=== PATIENT | female | born 1945 | race Asian ===

== ENCOUNTER 2016-08-31 06:51 | Inpatient (IN) | payer OTHER ==
[2016-08-25 11:18] LABS: BASOPHIL % 0.3 % (0-2); PLATELET COUNT 230 x10^3mcL (130-400); RED CELL DISTRIBUTION WIDTH 12.7 % (11.5-14.5)
[2016-08-25 11:26] LABS: CALCIUM 9.6 mg/dL (8.5-10.1); CARBON DIOXIDE 30.6 mmol/L (21-32); CHLORIDE SERUM 103 mmol/L (98-107); CREATININE SERUM 0.7 mg/dL (0.6-1.0); GFR1 > 60 mL/min; GLUCOSE SERUM 103 mg/dL (74-106); POTASSIUM SERUM 4.3 mmol/L (3.5-5.1); SODIUM SERUM 141 mmol/L (136-145)
[~2016-08-31] VITALS: Ht 160 cm; Wt 65.8 kg
[2016-08-31 08:22] VITALS: BP 162/80
[2016-08-31 14:20] VITALS: BP 97/55
--- NOTE | 2016-08-31 14:35 | NUR ---
ARRIVED FROM OR WITH NATA RN AT 1355. VS'S STABLE, EXCEPT TEMP 96.4, 2 WARM BLANKETS APPLIED. LUNGS CTA. NO SOB. O2 SAT ON 2L NC 100%. BS'S ACTIVE TIMES 4. PERSON CATH DRAINING YELLOW URINE TO BSD. DRESSING TO RIGHT HIP CDI. PERIPHERAL PULSES PALPABLE, NO EDEMA. ON AIR MATTRESS. SCD BLE. SLEEPY BUT AROUSABLE WITH TACTILE STIMULUS.
--- NOTE | 2016-08-31 15:43 | NUR ---
P.T. NOTES VERBAL ORDER FOR OHT SET UP; OHT APPLIED, EXPLAINED PROPER USE; CALL TOBIN, PHONE, TABLE IN REACH; NURSE AWARE. OHT SET UP
[2016-08-31 16:45] LABS: ALKALINE PHOSPHATASE 59 U/L (46-116); ALT/SGPT 37 U/L (14-59); AMYLASE 57 U/L (25-115); AST/SGOT 41 U/L (15-37); BILIRUBIN TOTAL 0.42 mg/dL (0.20-1.00); CALCIUM 8.3 mg/dL (8.5-10.1); CARBON DIOXIDE 26.4 mmol/L (21-32); CHLORIDE SERUM 107 mmol/L (98-107); CREATININE SERUM 0.9 mg/dL (0.6-1.0); GFR1 > 60 mL/min; GLUCOSE SERUM 176 mg/dL (74-106); HDL CHOLESTEROL 35 mg/dL (40-60); LIPASE 214 IU/L (73-393); MAGNESIUM 1.9 mg/dL (1.8-2.4); PHOSPHOROUS 4.4 mg/dL (2.5-4.9); POTASSIUM SERUM 3.9 mmol/L (3.5-5.1); SODIUM SERUM 142 mmol/L (136-145); TOTAL PROTEIN, SERUM 6.3 g/dL (6.4-8.2); TRIGLYCERIDES 99 mg/dL (<150)
[2016-08-31 16:46] LABS: ALBUMIN 3.1 g/dL (3.4-5.0); CHOLESTEROL 121 mg/dL (<200); CHOLESTEROL/HDL RATIO 3.5
[2016-08-31 16:52] LABS: FREE T4 1.17 ng/dL (0.76-1.46); FREE THYROXINE INDEX 2.8 ug/dL (1.4-4.5); T4(THYROXINE) 7.8 ug/dL (4.7-13.3)
[2016-08-31 16:54] LABS: T3 TOTAL 0.98 ng/mL
[2016-08-31 18:14] VITALS: BP 90/50
--- NOTE | 2016-08-31 18:53 | NUR ---
AAO TIMES 4. TELE DC'D, NOW MED SURG. IV SITE CDI. DENIES DISCOMFORT TO RIGHT LEG. IV SITE RIGHT HAND CDI. COOPERATIVE AND PLEASANT. NO SOB. ON AIR MATTRESS. DRESSING TO RIGHT HIP CDI. SCD BLE. ABDUCTOR PILLOW BETWEEN KNEES.
[2016-08-31] MEDS ORDERED: LIPITOR20 MG PO (20:38)
[2016-08-31] MEDS ORDERED: ATENOLOL25 MG PO (20:39)
--- NOTE | 2016-08-31 21:33 | NUR ---
DR. NICHOLSON NOTIFIED OF BP BEING 101/50 WITH MAP OF 62. INSTRUCTED TO MONITOR AND NOTIFY HER IF PT BP DECREASES ANY FURTHER.
[2016-08-31 22:05] VITALS: BP 101/52
--- NOTE | 2016-08-31 22:17 | NUR ---
PT REPORTED THAT PAIN AT THE SURGICAL SITE WAS STARTING TO INCREASE, BP 95/55 WITH MAP OF 68. WILL CONTINUE TO CLOSELY MONITOR BP AND MAP.
--- NOTE | 2016-08-31 23:25 | NUR ---
UPON REEVALUATION OF PAIN MEDICATION PT STATED THAT THAT PAIN HAS DECREASED BUT OCCASIONALLY SHE GETS A SHARP PAIN. NO PAIN NOTED AT THIS TIME. WILL CONTINUE TO MONITOR.
[2016-09-01 06:10] VITALS: BP 99/53
--- NOTE | 2016-09-01 06:13 | NUR ---
PT MAINTAINED PLEASANT DEMEANOR THROUGHOUT SHIFT AND REQUESTED PRN PAIN MEDICATION ONE TIME (SEE EMAR). PT STATED THAT WHEN SHE HAD PAIN IT WAS SHARP AND SHORT IN DURATION. PT REMAINED CALM AND COOPERATIVE THROUGHOUT SHIFT.
[2016-09-01 06:29] LABS: BASOPHIL % 0.3 % (0-2); PLATELET COUNT 171 x10^3mcL (130-400); RED CELL DISTRIBUTION WIDTH 12.9 % (11.5-14.5)
[2016-09-01 06:50] LABS: CALCIUM 7.6 mg/dL (8.5-10.1); CARBON DIOXIDE 24.8 mmol/L (21-32); CHLORIDE SERUM 108 mmol/L (98-107); CREATININE SERUM 0.8 mg/dL (0.6-1.0); GFR1 > 60 mL/min; GLUCOSE SERUM 137 mg/dL (74-106); MAGNESIUM 1.7 mg/dL (1.8-2.4); PHOSPHOROUS 3.6 mg/dL (2.5-4.9); POTASSIUM SERUM 4.3 mmol/L (3.5-5.1); SODIUM SERUM 142 mmol/L (136-145)
--- NOTE | 2016-09-01 08:28 | NUR ---
AAO TIMES 4. MED SURG PATIENT. LUNGS CTA. NO SOB. O2 SAT ON RA 98%. BS'S ACTIVE TIMES 4. ABDUCTOR PILLOW BETWEEN LEGS. DRESSING TO RIGHT HIP CDI. ON AIR MATTRESS. PERSON CATH DRAINING YELLOW URINE TO BSD. PERIPHERAL PULSES PALPABLE. NO EDEMA. SCD BLE.
--- NOTE | 2016-09-01 08:50 | NUR ---
MEDICAL ROUNDS OCCURED AT [address] LÓPEZ AND THE MEDICINE TEAM. THE PLAN TODAY IS TO SEND HER HOME AND DC HER PERSON THIS AM.
--- NOTE | 2016-09-01 08:55 | NUR ---
MEDICAL ROUNDS OCCURED THIS AM WITH DR LÓPEZ AND THE MEDICINE TEAM. THE PLAN TODAY IS FOR HER TO GET OOB WITH PHYSICAL THERAPY.
[2016-09-01 10:25] VITALS: BP 101/45
[2016-09-01 17:50] VITALS: BP 115/52
--- NOTE | 2016-09-01 18:38 | NUR ---
AAO TIMES 4. NO TELE. MED SURG PATIENT. NO C/O PAIN. NO SOB. PERSON CATH DRAINED 1600 ML CLEAR YELLOW URINE TO COLLECTION BAG TODAY. IV SITE CDI. COOPERATIVE. PT'S FAMILY AT BEDSIDE, THEY ARE DECIDING IF THEY WANT HER TO GO TO [facility] TODAY.
--- NOTE | 2016-09-01 20:00 | NUR ---
RECEIVED PT IN BED,ALERT AND ORIENTED. DENIES HEADACHE/DIZZINESS. RESP. EVEN AND UNLABORED. ON ROOM AIR, LUNGS SOUNDS CLEAR BILAT. NO DISTRESS NOTED. AFEBRILE AND VITAL SIGNS STABLE. NO TELE, DENIES CP OR PRESSURE. DENIES ANY DISCOMFORT AT THIS TIME. RT HIP DRESSING DRY AND INTACT, ABDUCTION PILLOW B/W THE LEGS, ABLE TO WIGGLE TOES/ MOVE EXTS. PERSON CATH INTACT AND DRAINING YELLOW COLOR URINE. IVF, NS AT 110ML/HR VIA RT HAND, SITE CLEAR. ASSISTED WITH HS CARE. CALL LIGHT WITHIN REACH. WILL CONTINUE TO MONITOR.
[2016-09-01 21:32] VITALS: BP 112/55
--- NOTE | 2016-09-01 23:03 | NUR ---
COMPLAINED OF RT HIP INCISION PAIN, 4/10, MEDICATED WITH NORCO 1TAB PO ORDERED. WILL CONTINUE TO MONITOR.
--- NOTE | 2016-09-02 02:02 | NUR ---
ASLEEP AT THIS TIME, EASILY AROUSABLE. NO DISTRESS NOTED. WILL CONTINUE TO MONITOR.
[2016-09-02 05:33] VITALS: BP 101/58
[2016-09-02 06:13] LABS: BASOPHIL % 0.3 % (0-2); PLATELET COUNT 163 x10^3mcL (130-400); RED CELL DISTRIBUTION WIDTH 12.7 % (11.5-14.5)
[2016-09-02 06:26] LABS: CALCIUM 8.1 mg/dL (8.5-10.1); CARBON DIOXIDE 29.1 mmol/L (21-32); CHLORIDE SERUM 108 mmol/L (98-107); CREATININE SERUM 0.7 mg/dL (0.6-1.0); GFR1 > 60 mL/min; GLUCOSE SERUM 135 mg/dL (74-106); PHOSPHOROUS 2.1 mg/dL (2.5-4.9); POTASSIUM SERUM 3.6 mmol/L (3.5-5.1); SODIUM SERUM 143 mmol/L (136-145)
--- NOTE | 2016-09-02 06:27 | NUR ---
AFEBRILE AND VITAL SIGNS STABLE. RESP. EVEN AND UNLABORED.ENCOURAGED TO USE THE INCENT. SPIROMETRY, TAINA. WELL. DENIES PAIN OR ANY DISCOMFORT AT THIS TIME. IVF INTACT AND INFUSING WELL, SITE CLEAR. RT HIP DRESSING DRY AND INTACT. ABDUCT. PILLOW B/W LEGS. PERSON CATH DISCONT. AT 0620 ORDERED. INSTRUCTED PT TO CALL FOR ASSIST. IF NEEDED TO VOID.SLEPT WELL. KEPT COMFORTABLE. WILL ENDORSE TO INCOMING NURSE.
--- NOTE | 2016-09-02 08:00 | NUR ---
AWAKE,ALERT AND ORIENTED,DENIES ANY PAIN AT THIS TIME.S/P RT HIP ORIF 08/31 W/ DRESSING CDI.ABDUCTOR PILLOW IN PLACE W/ TRAPEZE BAR .CONT. IV FLUIDS ORDERED. NO ACUTE DISTRESS NOTED. WILL CONT. PLAN OF CARE.
--- NOTE | 2016-09-02 08:45 | NUR ---
DR. LÓPEZ HERE W/ OTHER MEDICAL STAFF MADE ROUNDS AND UPDATED PT. PLAN OF CARE.
[2016-09-02 10:00] VITALS: BP 112/53
--- NOTE | 2016-09-02 10:30 | NUR ---
PT. SITTING UP IN CHAIR AT BEDSIDE.REQUESTED FOR PAIN MEDS C/O PAIN IN RT. HIP MEDICATED ORDERED.
--- NOTE | 2016-09-02 13:00 | NUR ---
PT. VOIDING IN THE BEDPAN W/ ASSIST. CONT. ABDUCTOR PILLOW IN PLACE. AND USING TRAPEZE BAR W/ ASSIST.CALL LIGHT W/ IN REACH.
--- NOTE | 2016-09-02 14:57 | NUR ---
PHYSICAL THERAPY DAILY NOTES CO-SIGN All documentation done by the Pattern Grader Cutter for 09/02/16 has been reviewed. I agree with the documentation. Reviewed/Co-Signed by: Darnell Steele PT Documentation Done by: Alvaro Hernandez MACHINE HOOP MAKER Pt progressing steadily towards rehab goals set, follwing cues for safe sequencing. I concur with both tx sessions documented.
[2016-09-02] MEDS ORDERED: ACETAMINOPHEN-H1 TA1 PO (17:10)
[2016-09-02] MEDS ORDERED: HYDROMORPHONE1 MG/M1 IV (17:11)
[2016-09-02] MEDS ORDERED: THERAGRAN-M1 TA4 PO (17:11)
[2016-09-02 17:23] VITALS: BP 106/55
[2016-09-02 17:37] VITALS: BP 106/55
--- NOTE | 2016-09-02 18:00 | NUR ---
DINNER SERVED ATE FAIRLY.REQUESTED FOR PAIN MEDS C/O PAIN IN RT. HIP GIVEN ORDERED.PT. WILL TRANSFER TO [facility] TO [facility]. REHAB TX AT 194 PM PT. MADE AWARE AND REPORT GIVEN TO CARRY RN TO [facility]. AWAITING FOR [facility] TRANSPORTATION,
--- NOTE | 2016-09-02 20:30 | NUR ---
PT TRANSFERRED VIA [facility] TO [facility], IN STABLE CONDITION. IV TO RIGHT HAND D/C'D, INTACT WITH NO REDNESS OR SWELLING. BREATHING EVEN AND UNLABORED. PT DENIED ANY PAIN. REMAINS ON ABDUCTOR PILLOW.
== END 2016-09-02 22:30 | disposition home or self-care (01) | DRG 470 ==
LOC: MU 06:51 → DU 06:51 → MU 09:00 → DU 14:16 → MU 18:13
PROVIDERS: Neuromusculoskeletal Medicine, Sports Medicine; ADMIT Family Medicine
PROC: 0SR904Z Replacement of Right Hip Joint with Ceramic on Polyethylene Synthetic Substitute, Open Approach (ICD-10-PCS; principal; 2016-08-31 09:00)
DX: M16.11 Unilateral primary osteoarthritis, right hip (principal); E44.0 Moderate protein-calorie malnutrition; I10 Essential (primary) hypertension; E78.5 Hyperlipidemia, unspecified; Z68.25 Body mass index [BMI] 25.0-25.9, adult; Z96.651 Presence of right artificial knee joint
CPT/HCPCS: 83880; 84439; 94150; 97110-GP; 97116-GP; 97530-GP; C1776; J0330; J0690; J1650; J2250; J2270; J2405; J2704; J2710; J3010; J3490; J7030; J7120; Q0092

== ENCOUNTER 2018-07-29 04:25 | Emergency (ER) | payer OTHER ==
[~2018-07-29] VITALS: Ht 160 cm; Wt 71.7 kg
[~2018-07-29 04:25] MED LIST: ACETAMINOPHEN-H1 TA1 PO; ATENOLOL25 MG PO; HYDROMORPHONE1 MG/M1 IV; LIPITOR20 MG PO; THERAGRAN-M1 TA4 PO
[2018-07-29 04:29] VITALS: Ht 160 cm; Wt 71.7 kg
[2018-07-29 04:52] LABS: BASOPHIL % 0.4 % (0-2); PLATELET COUNT 264 x10^3mcL (130-400); RED CELL DISTRIBUTION WIDTH 12.9 % (11.5-14.5)
[2018-07-29 05:01] LABS: CALCIUM 9.8 mg/dL (8.5-10.1); CHLORIDE SERUM 100 mmol/L (98-107); CREATININE SERUM 0.8 mg/dL (0.6-1.0); GFR1 > 60 mL/min; GLUCOSE SERUM 129 mg/dL (74-106); POTASSIUM SERUM 3.8 mmol/L (3.5-5.1); SODIUM SERUM 137 mmol/L (136-145)
[2018-07-29 05:08] LABS: ALBUMIN 4.2 g/dL (3.4-5.0); ALKALINE PHOSPHATASE 83 U/L (46-116); ALT/SGPT 35 U/L (14-59); AST/SGOT 19 U/L (15-37); BILIRUBIN TOTAL 0.7 mg/dL (0.20-1.00); LIPASE 216 IU/L (73-393); TOTAL PROTEIN, SERUM 8.6 g/dL (6.4-8.2)
[2018-07-29 05:20] LABS: microscopic required? YES; urine erythrocyte TRACE (NEGATIVE)
[2018-07-29 07:27] VITALS: BP 154/66
== END 2018-07-29 07:28 | disposition home or self-care (01) ==
LOC: ED 04:25
PROVIDERS: Emergency Medicine
DX: K80.70 Calculus of gallbladder and bile duct without cholecystitis without obstruction (principal); I10 Essential (primary) hypertension; E78.00 Pure hypercholesterolemia, unspecified
CPT/HCPCS: J2270; J2405; Q0092